=== PATIENT | male | born 2000 | race Asian ===

== ENCOUNTER 2023-05-04 04:59 | Emergency (ER) | payer OTHER ==
[~2023-05-04] VITALS: Ht 170.2 cm; Wt 62.6 kg
[2023-05-04 05:02] VITALS: BP 142/102; PULSE 95; RESP 20
== END 2023-05-04 05:44 | disposition home or self-care (01) ==
LOC: EDH 04:59
DX: T50.901A Poisoning by unspecified drugs, medicaments and biological substances, accidental (unintentional), initial encounter (principal); Z98.890 Other specified postprocedural states; Y92.89 Other specified places as the place of occurrence of the external cause
CPT/HCPCS: 99281